=== PATIENT | male | born 1990 | race Caucasian/White ===

== ENCOUNTER 2020-09-09 17:59 | Emergency (ER) | payer OTHER ==
[~2020-09-09] VITALS: Ht 172.7 cm; Wt 93.0 kg
[2020-09-09] MEDS ORDERED: BACLOFEN 10MG T10 MG PO (19:23)
[2020-09-09 19:50] VITALS: BP 125/71
== END 2020-09-09 19:51 | disposition home or self-care (01) ==
LOC: M.ERS 17:59
DX: M54.16 Radiculopathy, lumbar region (principal); Z88.8 Allergy status to other drugs, medicaments and biological substances